=== PATIENT | male | born 1995 | race Caucasian/White ===

== ENCOUNTER 2018-01-07 18:38 | Emergency (ER) | payer BC ==
[2018-01-07 19:12] VITALS: BP 100/66
--- NOTE | 2018-01-07 19:37 | UC ---
Eye Complaint HPI - HPI Summary HPI Summary: 22 y/o male presents to the urgent care c/o B/L eye redness and clear eye discharge w/ a lot of itchiness. Pt reports he has H of seasonal allergies and he usually takes Zyrtec every day in the fall. Redness is more in LF eye than RT. Pt denies eye pain, visual disturbances, fever, photophobia, LOPEZ, URI. SOB, hest pain, abdominal pain, N/V/D. - History of Current Complaint Chief Complaint: UCEye Stated Complaint: EYE IRRITATION Time Seen by Provider: 01/07/18 19:27 Hx Obtained From: Patient Onset/Duration: Gradual Onset, Lasting Days - 3 days, Still Present, Worse Since - today Timing: Constant Severity Initially: Mild Severity Currently: Mild Pain Intensity: 0 Pain Scale Used: 0-10 Numeric Location of Injury: Conjunctiva - B/L eye redness Aggravating Factor(s): Blinking Alleviating Factor(s): Nothing Associated Signs And Symptoms: Positive: Drainage (Clear). Negative: Photophobia, Drainage (Purulent), Fever, Swelling - Risk Factors Penetrating Injury Risk Factor: Negative Globe Rupture Risk Factors: Negative Acute Glaucoma Risk Factors: Negative Optic Artery Occlusion Risk Factors: Negative - Allergies/Home Medications Allergies/Adverse Reactions: Allergies Allergy/AdvReac Type Severity Reaction Status Date / Time No Known Allergies Allergy Verified 01/07/18 19:12 PMH/Surg Hx/FS Hx/Imm Hx Previously Healthy: Yes - Pt denies PMHX - Surgical History Surgical History: None - Family History Known Family History: Positive: None - Pt denies FMHX - Social History Occupation: Employed Full-time Lives: With Family Alcohol Use: Rare Substance Use Type: None Smoking Status (MU): Never Smoked Tobacco Review of Systems Constitutional: Negative Skin: Negative Eyes: Drainage - clear, Eye Redness - B/L w/ a lot itchiness ENT: Negative Respiratory: Negative Cardiovascular: Negative Gastrointestinal: Negative Genitourinary: Negative Motor: Negative Neurovascular: Negative Musculoskeletal: Negative Neurological: Negative Psychological: Negative Is Patient Immunocompromised?: No All Other Systems Reviewed And Are Negative: Yes Physical Exam - Summary Physical Exam Summary: Vital Signs Reviewed: Yes General: Well appearing, well nourished male in no apparent pain distress Eyes: Positive: PERRLA, EOMI, fundi grossly normal, conjunctiva mildly injected w/ clear eye discharge . B/L eyelids with mild erythema and itching.Conjunctiva Inflamed - Visual acuity: WNL,Visual alvares: full to confrontation. eyelashes clear. mild tearing and clear drainage observed. No ciliary flush. No chemosis, No photophobia. Normal fundoscopic exam; no proptosis, exophthalmos, nystagmus. ENT: Positive: Normal ENT inspection, Hearing grossly normal, Pharynx normal, Nasal congestion, Nasal drainage - clear, TMs normal - B/L external ear canal clear , TM's WNL. Negative: Tonsillar swelling, Tonsillar exudate Neck: Positive: Supple, Nontender, No Lymphadenopathy Respiratory: Positive: Chest nontender, Lungs clear, Normal breath sounds, No respiratory distress Cardiovascular: Positive: RRR, No Murmur, Pulses Normal, Brisk Capillary Refill Abdomen Description: Positive: Nontender, No Organomegaly, Soft. Negative: CVA Tenderness (R), CVA Tenderness (L) Bowel Sounds: Positive: Present Musculoskeletal: Positive: Strength Intact, ROM Intact, No Edema Neurological Exam: Normal Psychological Exam: Normal Skin Exam: Normal Triage Information Reviewed: Yes Vital Signs: Initial Vital Signs Temp 98 F 01/07/18 19:07 Pulse 69 01/07/18 19:07 Resp 12 01/07/18 19:07 BP 100/66 01/07/18 19:07 Pulse Ox 100 01/07/18 19:07 Eye Complaint Course/Dx - Course Course Of Treatment: 22 y/o male presents to the urgent care c/o B/L eye redness and clear eye discharge w/ a lot of itchiness. Pt reports he has H of seasonal allergies and he usually takes Zyrtec every day in the fall. Redness is more in LF eye than RT. Pt denies fever,eye pain, visual disturbances, photophobia, LOPEZ, URI. SOB, hest pain, abdominal pain, N/V/D.Hx obtained. Pt w/ allergic conjunctivitis on examination. PE :PERRLA, EOMI, fundi grossly normal, conjunctiva mildly injected w/ clear eye discharge . B/L eyelids with mild erythema and itching. Pt Rx Patanol ophthalmic drops and advised to continue w / Zyrtec PO to alleviate symptoms. Advised if symptoms do not improve to return to the urgent care or f/u with PCP or Medical Observer Dr Moore. Pt understood and agreed w/ plan of care - Differential Dx/Diagnosis Differential Diagnosis/HQI/PQRI: Conjunctivitis, Corneal Abrasion, Keratitis, Orbital Cellulitis Provider Diagnoses: 1- B/L acute allergic conjunctivitis Discharge - Sign-Out/Discharge Documenting (check all that apply): Patient Departure All imaging exams completed and their final reports reviewed: No Studies - Discharge Plan Condition: Stable Disposition: HOME Prescriptions: Olopatadine 0.1% OPHTH (NF) [Patanol 0.1% OPHTH (NF)] 1 drop BOTH EYES BID #1 btl Patient Education Materials: Conjunctivitis (ED) Referrals: [facility] [Outside] - 3 Days Hollis Moore MD [Medical Doctor] - If Needed Additional Instructions: 1-Please apply ophthalmic drops as instructed and finish the full course of treatment 2- Encourage hand washing and avoid rubbing your eye. Wash your eye well w/ baby Ilir shampoo and avoid allergens 3-If you do not improve or if symptoms worsen please f/u with your PCP or field reporter Dr Moore for further evaluation and treatment - Billing Disposition and Condition Condition: STABLE Disposition: Home - Attestation Statements Provider Attestation: I was available for consult. This patient was seen by the GILDARDO. The patient was not presented to, seen by, or examined by me. -Karolina
== END 2018-01-07 20:06 | disposition home or self-care (01) ==
LOC: UCEAST 18:38
DX: H10.13 Acute atopic conjunctivitis, bilateral (principal)
CPT/HCPCS: 99202; G0463